=== PATIENT | male | born 1965 | race Caucasian/White ===

== ENCOUNTER → 2016-10-13 | Outpatient (CLI) | payer OTHER ==
--- NOTE | 2016-10-13 10:53 | ECHOS ---
DATE OF SERVICE: 10/13/2016 AGE: 51Y SEX: M HT: 68" WT: 170 lbs. Protocol Andrea: X Others: Stress Echo Stage: 3 Dur. of Exercise: 8:00 *Heart Rate Blood Pressure *Rest: 68 Rest: 108/72 * *Max. Achieved: 151 Maximum BP: 174/57 85% PMHR: 143 100% PMHR: 168 *METS: 9.6 INDICATIONS: Abnormal EKG. MEDICATIONS: Amlodipine. STRESS DATA: Pretesting physical examination showed a heart rate of 68, pressure is 108/72 mmHg. Baseline EKG showed sinus rhythm. The patient exercised on the treadmill according to Andrea protocol for a total of 8 minutes and achieved 9.6 METs. Max heart rate was 151, which is about 90% of maximum predicted heart rate. Maximum blood pressure was 174/57 mmHg. Clinically, the patient did not have any symptoms of chest pain or discomfort and the EKG did not show any significant ST or T-wave abnormalities consistent with ischemia. ECHOCARDIOGRAM IMAGES: On echocardiogram images from parasternal long axis view, parasternal short axis view, apical 4 chambers and apical 2 chambers at the baseline images, at the peak of the heart rate, as well as on recovery, the echocardiogram images showed good augmentation in the left ventricular systolic function without any evidence of wall motion abnormalities consistent with ischemia. CONCLUSION: 1. Good exercise capacity. 2. Normal EKG in response to exercise. 3. Normal echocardiogram in response to exercise.
== END | disposition home or self-care (01) ==
LOC: RADNMMAIN 09:25
PROVIDERS: ATTEND Family Medicine
DX: R94.31 Abnormal electrocardiogram [ECG] [EKG] (principal)
CPT/HCPCS: 93017; 93350

== ENCOUNTER 2016-10-20 08:32 | Day surgery (SDC) | payer OTHER ==
--- NOTE | 2016-10-20 07:45 | P.GSHP ---
History of Present Illness H&P Date: 10/20/16 CHIEF COMPLAINT: Colon screen HISTORY OF PRESENT ILLNESS: The patient is a 51-year-old male who presents for colon screen. Lower endoscopy was offered for further evaluation and management. PAST MEDICAL HISTORY: Please see list. PAST SURGICAL HISTORY: Please see list. MEDICATIONS: Please see list. ALLERGIES: Please see list. SOCIAL HISTORY: No illicit drug use FAMILY HISTORY: No reports of Crohn disease or ulcerative colitis. REVIEW OF ORGAN SYSTEMS: CONSTITUTIONAL: No reports of fevers or chills. PHYSICAL EXAM: VITAL SIGNS: Stable GENERAL: Well-developed pleasant in no acute distress. HEENT: No scleral icterus. Extraocular movements grossly intact. Moist buccal mucosa. NECK: Supple without lymphadenopathy. CHEST: Unlabored respirations. Equal bilateral excursions. CARDIOVASCULAR: Regular rate and rhythm. Distal 2+ pulses. ABDOMEN: Soft, nontender, nondistended. MUSCULOSKELETAL: No clubbing, cyanosis, or edema. ASSESSMENT: 1. Colon screen. PLAN: 1. Recommend proceeding with a lower endoscopy Past Medical History Past Medical History: Hyperlipidemia, Hypertension Additional Past Medical History / Comment(s): had abn EKG recently, stress test 10-13-16,hx stomach ulcer 20 yrs ago,Lasik lety eyes History of Any Multi-Drug Resistant Organisms: None Reported Past Surgical History: Hernia Repair Additional Past Surgical History / Comment(s): hernia x 2 Past Anesthesia/Blood Transfusion Reactions: No Reported Reaction Past Psychological History: No Psychological Hx Reported Smoking Status: Former smoker Past Alcohol Use History: Occasional Additional Past Alcohol Use History / Comment(s): smoked on and off approx 10 yrs <1ppd,quit smoking Sep 2016 Past Drug Use History: None Reported - Past Family History Mother Family Medical History: Myocardial Infarction ([place]) Additional Family Medical History / Comment(s): at age 62 [place] Father Family Medical History: Cancer Additional Family Medical History / Comment(s): Lymphoma Medications and Allergies Home Medications Medication Instructions Recorded Confirmed Type Aspirin 81 mg PO DAILY 10/15/16 10/15/16 History Fish Oil/Dha/Epa [Fish Oil 1,200 1,500 mg PO DAILY 10/15/16 10/15/16 History mg Fish Oil] Men's Prostate Vitamin 1 tab PO DAILY 10/15/16 10/15/16 History Nicotine 14Mg/24Hr Patch [Habitrol 1 patch TRANSDERM DAILY 10/15/16 10/15/16 History 14Mg/24Hr Patch] amLODIPine [Norvasc] 5 mg PO QAM 10/15/16 10/15/16 History Allergies Allergy/AdvReac Type Severity Reaction Status Date / Time latex Allergy Rash/Hives Verified 10/15/16 09:10 bandaids Allergy Rash/Hives Uncoded 10/15/16 09:46
[~2016-10-20 08:32] MED LIST: LACTATED RINGERS 1,000 ML IV SCH
[2016-10-20] MEDS ORDERED: LIDOCAINE 1% 20 ML VIAL (10MG/ML) FOR IV START INTRADERMA ONE (09:50)
[2016-10-20] MEDS ORDERED: PROPOFOL 10 MG/ML 20 ML VIAL IV ONE (10:09)
--- NOTE | 2016-10-20 10:39 | P.PCN ---
Date of Procedure: 10/20/16 Description of Procedure: PREOPERATIVE DIAGNOSIS: Colonoscopy screening, initial. POSTOPERATIVE DIAGNOSIS: Colonoscopy screening, initial. Diverticulosis, scattered. Multiple benign colon neoplasms, hepatic flexure and sigmoid colon. OPERATION: Colonoscopy to the proximal ascending colon. Colonoscopy snare polypectomy at 20 cm from the anal verge, sigmoid colon. Colonoscopy with cold forcep biopsy at hepatic flexure SURGEON: Luana Danielle MD. ANESTHESIA: MAC. INDICATIONS: The patient is a 51-year-old male who presents for his first colonoscopy screening. Benefits and risks were described and informed consent was obtained. DESCRIPTION OF PROCEDURE: The patient had undergone Gatorade, MiraLAX and Dulcolax prep. He had been brought into the operating room and laid in the left lateral decubitus position. After adequate intravenous sedation, the rectum was examined with 2% lidocaine jelly. The rectal tone was smooth and without nodularity. No external hemorrhoids were encountered. The rectal tone was within normal limits. No lesions were palpated in the rectal vault. An Olympus colonoscope was advanced until the ileocecal valve and appendiceal orifice were clearly viewed. The prep was excellent with clear visualization of the mucosal folds. The scope was removed with visualization of each mucosal fold. Scattered diverticulosis was encountered. Cold forcep biopsy of a villous polyp was removed along the hepatic flexure of 4 mm. At 20 cm from the anal verge, a 10 mm tubulovillous polyp was snare polypectomy. No evidence of focal colitis was found. The colon was desufflated. The patient had tolerated the procedure well. Withdrawal time was over 6 minutes. FINDINGS: Internal hemorrhoids, grade 1 No external prolapsed hemorrhoids. No arteriovenous malformations. 10 mm tubular villous polyp at 20 cm, snare polypectomy 4 mm flat villous polyp at hepatic flexure, cold forcep biopsy No focal colitis. RECOMMENDATIONS: Repeat lower endoscopy in 2 years, 2019.
== END 2016-10-20 11:30 | disposition home or self-care (01) ==
LOC: ORWHC2ENDO 08:32
PROVIDERS: ATTEND Surgery Plastic and Reconstructive Surgery
DX: Z12.11 Encounter for screening for malignant neoplasm of colon (principal); D12.3 Benign neoplasm of transverse colon; K63.5 Polyp of colon; K57.30 Diverticulosis of large intestine without perforation or abscess without bleeding; K64.0 First degree hemorrhoids; I10 Essential (primary) hypertension; Z87.891 Personal history of nicotine dependence; E78.5 Hyperlipidemia, unspecified; Z79.899 Other long term (current) drug therapy; Z91.040 Latex allergy status; Z79.82 Long term (current) use of aspirin
CPT/HCPCS: 88305; 45380; 45385; J2704; 99153

== ENCOUNTER → 2017-12-13 | Outpatient (CLI) | payer OTHER ==
--- NOTE | 2017-12-13 19:47 | CONS ---
CONSULTATION This is a consultation for snoring. This is a very nice 52-year-old male patient who was referred to me for evaluation of snoring. His primary care physician is Dr. Aletha Spain. His has been complaining that the patient has been snoring very loud and she is at the point where she cannot sleep with him in the same room. Nevertheless, despite his loud snoring, the patient denies having to quit breathing at night, does not wake up gasping or choking, does not have any nocturia, does not have any sleep fragmentation, does not have any significant hypersomnia or sleepiness during the day. His Norcross score is at 8. He goes to bed at around 11:00 p.m., wakes up 6:00 am in the morning. He sleeps in various body positions. He prefers to sleep on his side. He has undergone previous tonsillectomy. No recent weight gain. No history of alcohol use, although alcohol drinking has made his snoring worse. He breathes through his nose. No sinus allergies. No nasal polyps. No history of any postnasal drainage or sinus infections. PAST MEDICAL HISTORY: Negative. PAST SURGICAL HISTORY: Includes tonsillectomy and hernia surgery. DRUG ALLERGIES: Are to LATEX and NUTS. MEDICATIONS: None. SOCIAL HISTORY: Nonsmoker. No history of alcohol. No history of IV drugs. 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 He lives in [place] and he drives back and forth to [place] without having to fall asleep while driving and never been involved in a motor vehicle accident. REVIEW OF SYSTEMS: A 12-point review of system was done and positive findings are all mentioned above in the history of present illness. BP is 115/67, pulse 54, respirations 16, temperature 97.5, saturation 99% on room air. Neck size 15 inches, weight is 168, BMI 26. Height is 5 feet 7 inches. GENERAL APPEARANCE: Calm, comfortable. HEENT: Mild overbite. There is no goiter or neck masses. Post tonsillectomy. Crowding of posterior pharynx, Mallampati class IV. LUNGS: Clear to auscultation. HEART: Sounds regular rate and rhythm. Normal S1, S2. No S3. No murmurs. ABDOMEN: Soft, nontender. No organomegaly. EXTREMITIES: No edema. No cyanosis or clubbing. NEUROLOGIC: Alert and oriented x3. There are no focal neurological deficits. PSYCHIATRIC: Negative for anxiety or depression. IMPRESSION: 1. Obstructive sleep apnea suspected. My overall suspicion is quite low in this patient, who seems to be having a good sleep quality without any sleep fragmentation or major hypersomnia or sleepiness during the day. 2. Snoring that needs further investigation. PLAN: 1. Encourage sleeping in a sidewise body position with keeping head of the bed elevated. 2. Avoid alcoholic beverages late at nighttime. 3. Do a home sleep study looking for any sleep breathing disorder. If not, we will go with conservative measures of treatment of primary snoring. ADARSHL / IJN: [id number] /
== END | disposition home or self-care (01) ==
LOC: SLEEP 15:21
PROVIDERS: ATTEND Internal Medicine Critical Care Medicine
DX: R06.83 Snoring (principal); Z90.89 Acquired absence of other organs; Z91.040 Latex allergy status; Z91.010 Allergy to peanuts
CPT/HCPCS: 99211

== ENCOUNTER → 2018-05-02 | Outpatient (CLI) | payer OTHER ==
--- NOTE | 2018-05-02 16:48 | PN ---
PROGRESS NOTE 52-year-old male patient diagnosed having obstructive sleep apnea coming in for a compliancy check. The patient was diagnosed having moderate to severe obstructive sleep apnea with an AHI of 24, worse in the supine body position. He also demonstrated mild nocturnal oxygen saturation. He is currently on CPAP pressure of 5. Treatment is successful. Snoring completely subsided. Waking up much more refreshed and alert during the day. He is benefitting from the treatment. His Almond score is down to 5. His compliancy data shows excellent use and his AHI while on treatment is down to 4.5, and he has been averaging more than 4 hours of CPAP use 100% of the time. He has no complaints as the patient uses an AirFit P10 nose pillow. At times he gets nasal congestion for which he is using Afrin and I cautioned him on the regular use of Afrin. He is going to use Flonase instead. Otherwise, no other new complaints for now. REVIEW OF SYSTEMS: 12-point review of system was done. Positive findings are mentioned above in the history of present illness. PHYSICAL EXAMINATION: BP is 127/64, pulse 52, respirations 16, temperature 97.8. Saturation 95% on room air. Weight is 174. General appearance: Calm and comfortable. Head is atraumatic, normocephalic. NECK: Supple. No JVD. No goiter. No neck masses. Mallampati class IV. LUNGS: Clear to auscultation. HEART: Sounds are regular rate and rhythm. Normal S1, S2. No S3, S4. No murmurs. ABDOMEN: Soft, nontender. No organomegaly. No edema. No cyanosis or clubbing. NEUROLOGIC: The patient is alert and oriented x3. There is no focal neurological deficits. PSYCHIATRIC: Negative for anxiety or depression. IMPRESSION: 1. Obstructive sleep apnea. Moderate to severe. AHI of 20. Currently undergoing successful CPAP therapy with a CPAP pressure of 6 cm of water. 2. Snoring recovered. 3. Hypersomnia, improved Almond score is down to 5. PLAN: 1. Continue same CPAP pressure. 2. Continue same mask interface. 3. No need for any further adjustments. 4. See me back in a year's time. Follow up earlier if needed. MMODL / IJN: [id number] /
== END | disposition home or self-care (01) ==
LOC: SLEEP 15:59
PROVIDERS: ATTEND Internal Medicine Critical Care Medicine
DX: G47.33 Obstructive sleep apnea (adult) (pediatric) (principal); Z99.89 Dependence on other enabling machines and devices

== ENCOUNTER → 2019-07-03 | Outpatient (CLI) | payer OTHER ==
--- NOTE | 2019-07-03 18:39 | PN ---
PROGRESS NOTE Deangelo is 54, coming in for an annual check regarding his obstructive sleep apnea. The patient has moderate to severe disease with an AHI of 24, currently on CPAP pressure of 6 cm of water. He has lost weight. He used to weigh 174 pounds and currently is down to 168. He has been averaging around 6 hours of CPAP use per night, and his CPAP use for more than 4 hours is 26/30. His leak is around 20 L/minute. His AHI is down to 5.4. He has no specific complaints. No major hypersomnia or sleepiness. Ephraim Score is 9. Note that the patient was using an AirFit P10 nose pillow, and today he was introduced to DreamWear under the nose. REVIEW OF SYSTEMS: Fourteen-point review of systems was done. Positive findings were all mentioned above in the history of present illness. PHYSICAL EXAMINATION: VITAL SIGNS: BP 120/76, pulse 60, respirations 16, temperature 98.3, saturation 98% on room air. Height is 5 feet 7 inches, weight 168. Ephraim Score is 9. BMI is 25.9. GENERAL APPEARANCE: Calm, comfortable. HEAD: Atraumatic, normocephalic. NECK: Supple. There is no JVD. No goiter or neck masses. Mallampati class IV. LUNGS: Clear to auscultation. HEART: Heart sounds are regular rate and rhythm. Normal S1, S2. No S3, S4. No murmurs. ABDOMEN: Soft, nontender. No organomegaly. EXTREMITIES: No edema. No cyanosis or clubbing. NEUROLOGIC: Awake and alert. There are no focal neurological deficits. PSYCHIATRIC: Negative for anxiety or depression. IMPRESSION: 1. Symptomatic obstructive sleep apnea, moderate to severe, with an apnea/hypopnea index of 24, currently on CPAP pressure of 6. 2. Hypersomnia, improved. Current Ephraim score is down to 9. 3. Obesity with interval weight loss. Currently he is down to 168 with a BMI of 25.9. PLAN: 1. Continue CPAP therapy at a pressure of 6. 2. Offer the patient a DreamWear [id number] mask, medium size. 3. Treatment is successful. Will continue to follow. The patient will see me back in one year in followup. MMODL / IJN: [id number] /
== END | disposition home or self-care (01) ==
LOC: SLEEP 16:22
PROVIDERS: ATTEND Internal Medicine Critical Care Medicine
DX: G47.33 Obstructive sleep apnea (adult) (pediatric) (principal); E66.9 Obesity, unspecified; Z68.25 Body mass index [BMI] 25.0-25.9, adult; Z99.89 Dependence on other enabling machines and devices